=== PATIENT | male | born 1950 | race Caucasian/White ===

== ENCOUNTER → 2021-03-15 12:49 | Outpatient (CLI) | payer MEDICARE, SELFPAY ==
--- NOTE | 2021-03-15 12:56 | DI.MRI.S_ITS ---
PROCEDURE: MR LUMBAR SPINE WO CON INDICATIONS: Radiculopathy, lumbar region TECHNIQUE: Noncontrast sagittal T1 spin echo and T2 fast echo, sagittal STIR, axial T1 and T2 fast spin echo through the lumbar spine. In cases with scoliosis, additional coronal T2 fast spin echo may be performed. COMPARISON: None. FINDINGS: Image quality: Excellent. Alignment and Curvature: Straightening of the normal lordotic curvature. Trace retrolisthesis of L3 on L4 and L4 on L5. Bone Marrow: Multilevel degenerative endplate sclerosis and spurring. Diffuse facet arthropathy. No evidence of acute fracture. T2 hyperintense focus measuring 1.5 cm involving the L5 vertebral body without definite T1 hyperintense appearance. This finding technically indeterminate. Spinal Cord: Conus medullaris terminates at the L1 level. Visualized cord demonstrates normal signal and size. Paraspinous Soft Tissues: T2 hyperintense left renal presumed cysts although technically nonspecific. T12-L1: Normal appearance. L1-L2: Posterior annular fissure. Severe canal narrowing. Near complete effacement of both lateral recesses with bilaterally symmetric appearance. Severe left foraminal stenosis with borderline nerve root compression. Mild right foraminal stenosis L2-L3: Severe canal stenosis. Near complete effacement of both lateral recesses with bilaterally symmetric appearance. Severe left foraminal stenosis, with borderline nerve root compression. No right foraminal narrowing. L3-L4: Severe canal narrowing. Partial effacement of both lateral recesses with bilaterally symmetric appearance. Moderate left foraminal narrowing with questionable nerve root compression. No right foraminal stenosis. L4-L5: [id number] canal narrowing. Near complete effacement of both lateral recesses with bilaterally symmetric appearance. Moderate right and mild left foraminal stenosis. L5-S1: Mild canal narrowing. Partial effacement of both lateral recesses with bilaterally symmetric appearance. Mild right foraminal narrowing. Moderate left foraminal stenosis IMPRESSION: Focal lesion within the L5 vertebral body measuring 1.5 cm. Indeterminate signal characteristics as above. This could represent metastatic disease versus atypical hemangioma. Further evaluation could be performed with contrast enhanced MRI, and or bone scan. Diffuse spondylosis with severe canal stenosis at L2-L3, L3-L4. Numerous bilateral foraminal stenoses as outlined by spinal level above. Dictated by: Jacob Barrientos M.D. on 03/15/2021 at 14:44 Approved by: Jacob Barrientos M.D. on 03/15/2021 at 14:53
== END ==
PROVIDERS: PCP Family Medicine; Referring Provider Family Medicine; Visit Provider Family Medicine
DX: M47.26 Other spondylosis with radiculopathy, lumbar region (principal); M48.061 Spinal stenosis, lumbar region without neurogenic claudication; M48.07 Spinal stenosis, lumbosacral region; M89.9 Disorder of bone, unspecified
CPT/HCPCS: 72148

== ENCOUNTER → 2021-04-05 13:53 | Outpatient (CLI) | payer MEDICARE, SELFPAY ==
--- NOTE | 2021-04-05 | DI.MRI.S_ITS ---
PROCEDURE: MR LUMBAR SPINE W CON INDICATIONS: abnormal mri of lumbar spine TECHNIQUE: After the administration of contrast, sagittal and axial T1 spin echo with fat saturation through the lumbar spine. COMPARISON: [facility], MR, MR LUMBAR SPINE WO CON, 03/15/2021, 13:11. FINDINGS: Image quality: Excellent. The previously described low T1 signal intensity focus within the T1 vertebral body demonstrates ill-defined peripheral enhancement as well as hypointense internal fat saturated T1 signal intensity, consistent with an atypical hemangioma. IMPRESSION: Findings suggestive of an atypical hemangioma at L5. Follow-up lumbar spine MRI with and without intravenous contrast in 3 months is recommended to exclude less likely, more aggressive etiologies. Dictated by: Bharti Ortiz M.D. on 04/05/2021 at 15:42 Approved by: Bharti Ortiz M.D. on 04/05/2021 at 15:45
== END ==
PROVIDERS: PCP Family Medicine; Referring Provider Family Medicine; Visit Provider Family Medicine
DX: M54.16 Radiculopathy, lumbar region (principal); M89.8X8 Other specified disorders of bone, other site
CPT/HCPCS: 72149; A9579

== ENCOUNTER → 2025-02-02 12:36 | Outpatient (CLI) | payer MEDICARE, OTHER, SELFPAY ==
--- NOTE | 2025-02-02 13:03 | EKG_ITS ---
[address] [address] [address] [address] Test Date: 2025-02-02 Pat Name: Edgar Beckman Department: [facility] Room: Gender: Male Enrichment Assistant: RUPINDER : 1950 Requested By: Order Number: [id number] Reading MD: Panchito Whitfield Measurements Intervals [place] Rate: 52 P: 63 AL: 176 QRS: 48 QRSD: 110 T: 35 QT: 424 QTc: 394 Interpretive Statements Sinus bradycardia Electronically Signed On 02-08-2025 20:07:51 PDT by Panchito Whitfield
[2025-02-02 13:18] LABS: Appearance Urine UA CLEAR; Bilirubin Urine UA NEGATIVE (NEGATIVE); Color Urine UA YELLOW; Glucose Urine UA NEGATIVE (Negative); Ketones Urine UA NEGATIVE (NEGATIVE); Leukocyte Esterase Urine UA NEGATIVE (NEGATIVE); Nitrite Urine UA NEGATIVE (Negative); Occult Blood Urine UA NEGATIVE (Negative); Protein Urine UA NEGATIVE (Negative); Specific Gravity Urine UA 1.015 (1.000-1.035); Urobilinogen Urine UA 0.2 E.U./dL (0.2)
[2025-02-02 13:23] LABS: Bacteria Urine None Seen; Culture Indicated Urine Cult Not Indicated; RBC Urine None Seen (0-5/HPF); Squamous Epithelial Cell Urine None Seen (0-5/HPF); Urine Volume 10mL (spun); WBC Urine None Seen (0-5/HPF)
[2025-02-02 13:35] LABS: Add Manual Diff / Slide Review NO; Basophils Absolute Auto 100 /uL (0-100); Basophils Percent Auto 0.9 % (0-2); Eosinophils Absolute Auto 300 /uL (0-450); Eosinophils Percent Auto 4.6 % (2-4); Hematocrit 41.3 % (41-53); Hemoglobin 13.9 g/dL (13.5-17.5); Lymphocytes Absolute Auto 1400 /uL (1100-4500); Lymphocytes Percent Auto 20.3 % (25-40); Mean Corpuscular HGB Conc 33.7 % (30-36); Mean Corpuscular Hemoglobin 30.1 PG (26-34); Mean Corpuscular Volume 89.3 fL (80-100); Monocytes Absolute Auto 500 /uL (0-900); Monocytes Percent Auto 8.1 % (3-14); Neutrophils Absolute Auto 4500 /uL (1500-7000); Neutrophils Percent Auto 66.1 % (50-75); Platelet Count 333 X10^3/uL (150-400); Red Blood Cell Count 4.62 X10^6/uL (4.5-5.9); Red Cell Distribution Width 13.5 % (11.6-14.8); White Blood Cell Count 6.7 X10^3/uL (4.5-11.0)
[2025-02-02 13:43] LABS: Hemoglobin A1C% w Est Avg Glu 5.6 % (4.0-6.0)
[2025-02-02 13:49] LABS: BUN Creatinine Ratio 21.1 (6-22); Blood Urea Nitrogen 20 mg/dL (9-20); Calcium 9.8 mg/dL (8.4-10.2); Carbon Dioxide 29 mmol/L (22-32); Chloride 102 mmol/L (98-107); Estimated Glomerular Filt Rate > 60 mL/min (>60); Glucose 91 mg/dL (80-110); HEMOLYSIS < 15 (0-50); Potassium 4.6 mmol/L (3.4-5.1); Sodium 139 mmol/L (137-145)
== END ==
PROVIDERS: PCP Family Medicine; Referring Provider Orthopaedic Surgery; Visit Provider Orthopaedic Surgery
DX: Z01.818 Encounter for other preprocedural examination (principal); R73.9 Hyperglycemia, unspecified; Z01.812 Encounter for preprocedural laboratory examination; N39.0 Urinary tract infection, site not specified
CPT/HCPCS: 36415; 80048; 81001; 83036; 85025; 93005

== ENCOUNTER 2025-03-22 08:42 | Day surgery (SDC) | payer MEDICARE, OTHER, SELFPAY ==
[2025-03-15 09:45] VITALS: BMI 28.8
[2025-03-22] VITALS (12 sets, daily range): BP systolic 105–138; BP diastolic 39–63; PULSE 53–69; RESP 11–18; TEMP 36.3–37.2; O2SAT 92–98; BMI 28.8
--- NOTE | 2025-03-22 | DI.RAD.S_ITS ---
PROCEDURE: XR HIP W PEL IF DONE RT 4V INDICATIONS: intra op anterior rt hip TECHNIQUE: AP pelvis and lateral view of the hip acquired. COMPARISON: None. FINDINGS: Four limited fluoroscopic spot images are submitted. Expected postoperative changes status post right total hip arthroplasty without gross radiographic evidence of periprosthetic fracture or high attenuation surgical instrument or foreign body. IMPRESSION: Expected post-operative appearance of a right hip arthroplasty. Dictated by: Meliton Ashraf M.D. on 03/22/2025 at 21:53 Approved by: Meliton Ashraf M.D. on 03/22/2025 at 21:54
--- NOTE | 2025-03-22 06:00 | DI.RAD.S_ITS ---
PROCEDURE: XR HIP W PEL IF DONE RT 2V INDICATIONS: BRY TECHNIQUE: AP pelvis and lateral view of the hip acquired. COMPARISON: [facility], [facility]EL, ORTHO-XR HIP W PEL RT 4V, 03/22/2025, 12:41. FINDINGS: Bones: Patient is status post right hip arthroplasty, with hardware components in expected positions. The hip joint appears congruent. The visualized bony structures appear intact. Soft tissues: Overlying postoperative changes are noted. No suspicious soft tissue densities. IMPRESSION: Expected post-operative appearance of a hip arthroplasty. Dictated by: Selwyn Muller M.D. on 03/23/2025 at 15:21 Approved by: Selwyn Muller M.D. on 03/23/2025 at 15:23
[2025-03-22] MEDS: VANCOMYCIN 1,000 MG in SODIUM CHLORIDE 0.9% 250 ML 250 MG IV (09:34)
[2025-03-22] MEDS: LACTATED RINGERS 1,000 ML 42 ML IV (09:34)
[2025-03-22] MEDS: ACETAMINOPHEN 325 MG TABLET 975 MG PO (09:39)
[2025-03-22] MEDS: CELECOXIB 200 MG CAPSULE PO (09:39)
--- NOTE | 2025-03-22 10:14 | PM.PREOP ---
Pre-operative Note Interval Note History & Physical reviewed/Exam performed by Physician: Yes Changes to H&P: No
--- NOTE | 2025-03-22 10:15 | PM.OP.1 ---
Operative Date/Time/Diagnoses Date of procedure: 03/22/25 Time of procedure: 11:10 Pre-op diagnosis: right hip OA Post-op diagnosis: same Procedure & Clinicians Procedure: Right total hip arthroplasty anterior approach Same procedure as scheduled: Yes Indications: The patient has had progressively worsening right hip pain with radiographic changes consistent with arthritis. Non-operative management has failed and the patient has requested total hip replacement. The risks, benefits and alternatives to surgery were discussed with the patient prior to proceeding. Risks discussed included, but were not limited to, failure to relieve pain, leg length discrepancy, dislocation, stiffness, infection, nerve damage, deep venous thrombosis, pulmonary embolism, stroke, coma, heart attack, permanent paralysis and , as well as the potential need for eventual revision of the prosthetic. Surgeon: Lisbeth Hebert Building Maintenance Custodian: Abelino Lopez Anesthesia Type: Spinal Operative Notes Findings: Severe right hip OA, adequate stability Closure Type: primary Specimen(s): none sent Prosthetic devices, grafts, tissues, transplants, or devices: Hebert and nephew R3 58 mm, neutral poly liner,one 6.5 mm screw, polar stem lateralized size 3, 36 x -3 femoral head Estimated Blood Loss (mL): 250 Blood products transfused: none Procedure in detail: The patient was brought to the operating room. Patient was carefully positioned in the supine position. Time-out was performed and antibiotics were given. Anesthesia was induced. He was positioned in the on the table in order to allow hyperextension of the hip. The right lower extremity was prepped and draped in a standard sterile fashion. An anterior right hip incision was made 1 fingerbreadth lateral to the anterior superior iliac spine and extended distally towards the greater trochanter. Dissection was carried out through skin and subcutaneous tissues. Superficial hemostasis was achieved. The fascia over the tensor fascia catherine was defined and incised with a knife. Two Allis clamps were used to grasp the fascia. Tensor fascia catherine was retracted laterally. A gelpi retractor was placed. Dissection was carried out down along the neck. The circumflex vessels were carefully identified and cauterized with the Aqua Mantis. PA was used during the procedure was essential for intraoperative retraction and safe implantation of the components. There was good visualization of the femoral neck. A Cobra was placed superior to the neck and the gluteus fibers were carefully stripped from that superior aspect of the capsule. A 2nd retractor was placed along the inferior aspect of the neck. The rectus insertion along the capsule was partially released. A 3rd retractor that was then gently placed over the rim of the acetabulum under the rectus. Capsule was carefully incised and released from the intertrochanteric line circumferentially superior to the mid sagittal line and inferiorly to the mid sagittal line until the lesser trochanter was palpable. A tag stitch was placed both in the superior and inferior limb of the capsular insertion. Along the acetabulum capsule was also released up to the mid sagittal 12:00 position. A portion of the labrum was resected. A saw was used to perform an osteotomy at the level of the intertrochanteric line and the junction of the superior femoral neck leaving approximately 1 finger breath of residual inferior neck above the lesser trochanter. A 2nd cut was made along the femoral neck at the base of the head and a napkin ring of neck was removed. Corkscrew was placed in the femoral head and the head was removed without difficulty. Retractors were then repositioned around the acetabulum. Residual labrum was resected and additional osteophytes were removed. A reamer that was 4 mm below the templated size was placed by hand in the acetabulum and it was reamed to centralize the acetabulum. It was then reamed up to 2 under the templated size and fluoroscopy was brought in to confirm the position of the reaming and depth of reaming. I reamed 1 under the anticipated size. A trial cup was placed and noted that it was appropriately sized and fluoroscopy confirmed position and depth. The component was open and inserted without difficulty fluoroscopic imaging was used to confirm that the cup had been adequately seated and was well positioned. It was further stabilized with a single screw. Neutral poly liner was placed. The cup was tested and noted to be stable. Attention was then directed to the femur. The femur was gently hyperextended additional capsular release was performed as needed in order to allow adequate visualization of the proximal femur with elevation of the femur. Patient was placed in a hyperextended slightly adducted position with maximum external rotation. Box osteotome was used to check for any residual neck as well as sclerotic bone along the trochanter. [place] pepper was placed in the femur. Additional broaching was performed. Canal finder was used to determine the alignment of the canal and position. Size 1 broach was placed. The canal was then appropriately broached up to the templated size as long as there was adequate stability of the broach and serial advancement of the broach without excessive impingement. Specific attention was directed at avoiding varus attempting to direct the distal aspect of the broach more anteriorly and avoiding excessive anteversion. Trial reduction showed acceptable range of motion, good stability, no posterior impingement, congregational of leg length and appropriate lateral shuck. I also hyperflexed the hip and checked that there was no impingement anteriorly and there was good stability with flexion, adduction and internal rotation. Marcaine and Exparel were injected. The stem was placed without difficulty. Repeat trial reduction and x-ray showed acceptable overall position, length, and no evidence of the femoral fracture. Final head was placed. Wound was meticulously irrigated with normal saline. The hip was reduced and additional Exparel and Marcaine were injected. The capsule was closed with interrupted nonabsorbable sutures. The fascia of the tensor was closed with interrupted and running Vicryl. No drain was placed. Any tensor fascia catherine muscle that appeared to be contused or injured which was a minimal amount was carefully resected. Capsule around the tensor was injected with Exparel and Marcaine. The skin was closed with barbed stitches for the subcutaneous tissue and skin. We also used surgical glue. The wound was dressed sterilely. Brief Betadine soak was also used and was meticulously irrigated with normal saline. Patient was transferred to recovery room in satisfactory condition. Complications: none Post-operative Condition: stable Disposition: Acute Care Plan for aftercare: The patient will be maintained on a standard total hip replacement protocol with weight bearing as tolerated and anterior hip precautions. The patient will receive Aspirin and sequential compression devices for DVT prophylaxis. The patient will be discharged home when safe for the home environment.
--- NOTE | 2025-03-22 11:15 | SUR.OPER ---
Supine on padded [place] table with bilateral legs secured in padded positioning boots and suspended in positioning spars, operative leg in traction per surgeon. Head on one pillow. Arm on non-operative side secured on padded armboard <90 degrees abduction. Arm on operative side padded and resting across chest then secured with tape over sheet. Padded perineal post in place per surgeon.
[2025-03-22] MEDS: CEFAZOLIN 2 GM/100 ML PREMIX 100 ML IV ×2 (11:35→20:14)
[2025-03-22] MEDS: TRANEXAMIC ACID 1,000 MG VIAL 1000 MG INJ ×2 (11:50→13:45)
[2025-03-22] MEDS: BUPIVACAINE 0.25% W/ EPI 30 ML VIAL 60 ML INJ (11:51)
[2025-03-22] MEDS: BUPIVACAINE LIPOSOME 266 MG/20 ML VIAL INJ (11:51)
[2025-03-22] MEDS: LACTATED RINGERS 1,000 ML 100 ML IV ×2 (15:18→20:21)
[2025-03-22] MEDS: ACETAMINOPHEN 325 MG TABLET 650 MG PO ×2 (16:08→20:12)
[2025-03-22] MEDS: polyethylene glycoL 3350 17 GM POWD.PACK PO (16:08)
[2025-03-22] MEDS: DOCUSATE 100 MG CAPSULE PO (20:12)
[2025-03-22] MEDS: IBUPROFEN 400 MG TABLET PO (20:13)
[2025-03-22] MEDS: ASPIRIN EC 81 MG TABLET PO (20:14)
[2025-03-22] MEDS: LATANOPROST 0.005% OPHTH 2.5 ML 1 DROPS EYE-BOTH (20:15)
[2025-03-23] MEDS: CEFAZOLIN 2 GM/100 ML PREMIX 100 ML IV (03:31)
[2025-03-23] MEDS: ACETAMINOPHEN 325 MG TABLET 650 MG PO ×2 (03:31→09:16)
[2025-03-23] MEDS: IBUPROFEN 400 MG TABLET PO ×2 (03:31→09:19)
[2025-03-23 05:09] LABS: Hematocrit 34.5 % (41-53); Hemoglobin 12.1 g/dL (13.5-17.5)
[2025-03-23] MEDS: LEVOTHYROXINE 125 MCG TABLET 250 MCG PO (06:14)
[2025-03-23 07:00] VITALS: BP 125/68; PULSE 68; RESP 18; TEMP 36.3; O2SAT 97
--- NOTE | 2025-03-23 07:36 | PM.DS.1 ---
History of Present Illness History of Present Illness Chief complaint: Right Total Hip Arthroplasty/Anterior Approach Discharge Providers Provider Discharge Date: 03/23/25 Consults: 03/22/25 06:00 Consult to Anesthesiology Routine Comment: Consulting Provider: Anesthesiologist Reason for consultation: Regional block for post operative pain control Has provider been notified: No 03/22/25 15:07 Consult to Discharge Planning Routine Comment: Consult to Occupational Therapy Evaluate & Treat Comment: Physician Instructions: Evaluate and treat Consult to Physical Therapy Evaluate & Treat Comment: Physician Instructions: post op BRY protocol Discharge provider: Lisbeth Hebert MD Summary Hospital Course Discharge Diagnosis: Right hip OA. Right total hip arthroplasty. Hospital Course: Patient was taken to the operating room and underwent a right total hip arthroplasty. He tolerated the procedure well. He was mobilized with physical therapy. He had adequate pain control. He did not have problems voiding. He was felt to be stable for discharge to home. Time Spent with Patient Time spent: Less than 30 minutes Exam Vital Signs (past 8 hours): Oxygen Delivery Method Room Air Oxygen Flow Rate 0 Narrative Exam Narrative: Alert he is oriented his fair mobility in the right hip dressing is dry his calf is soft distally he is neurologically intact distally. Objective Labs 03/23/25 04:20 Labs: Laboratory Results - last 24 hr 03/23/25 04:20 Hgb 12.1 L Hct 34.5 L PFSH Medical History (Updated 03/15/25 @ 10:12 by Glenis Stevens RN) Spinal stenosis Scoliosis Chronic low back pain Osteoarthritis Hypothyroid HLD (hyperlipidemia) HTN (hypertension) Glaucoma Surgical History (Updated 03/15/25 @ 10:13 by Glenis Stevens RN) Hx of colonoscopy Status post hernia repair Family History (Updated 02/06/17 @ 00:00 by Conversion Provider) Grandfather Heart disease Grandmother Diabetes mellitus Social History household members: spouse Smoking Status: Former smoker alcohol intake: current Discharge Assessment & Plan Assessment and Plan Assessment: Doing well postoperatively. Stable for discharge to home. Plan of Treatment: Keep previously scheduled follow up a 10-14 days postoperatively. Ambulate as tolerated. Fall precautions. Discharge Plan Discharge Plan Patient Disposition: Home Discharge orders & Medications Discharge Orders: Discharge (Order); Ordered 03/23/25 Ordered By: Lisbeth Hebert Prescriptions: New acetaminophen 325 mg Tablet 650 mg PO Q6H Qty: 90 0RF polyethylene glycol 3350 17 gram Powder In Packet 17 gm PO DAILY PRN (Reason: Constipation) Qty: 14 0RF aspirin 81 mg Tablet,Delayed Release (Dr/Ec) 81 mg PO BID Qty: 90 0RF ibuprofen 400 mg Tablet 400 mg PO Q4H PRN (Reason: Pain, Mild (1-3)) Qty: 90 0RF oxycodone 5 mg Tablet 5 mg PO Q3H PRN (Reason: Pain, Moderate (4-6)) Qty: 30 0RF ondansetron HCl (PF) 4 mg/2 mL Solution 4 mg IV Q4HR PRN (Reason: Nausea And Vomiting) Qty: 20 0RF Continued latanoprost 0.005 % Drops 1 drp EYE-BOTH BEDTIME atorvastatin 20 mg Tablet 20 mg PO DAILY fenofibrate micronized 67 mg Capsule 67 mg PO DAILY acetaminophen 500 mg Tablet 1,000 mg PO BID losartan-hydrochlorothiazide 50-12.5 mg Tablet 1 tab PO DAILY levothyroxine 200 mcg Capsule 250 mcg PO DAILY Patient Comments: Pt takes 200mcg with a 50mcg pill daily Diet/Activity/Treatments Diet: Diet as Tolerated Activity: Walk multiple times a day. Be careful to avoid falls. Cold/Heat Therapy: Use ice multiple times a day. Skin/Wound/Dressing Care Skin care: Okay to shower. Report to your healthcare provider any signs of infection, such as:: chills, fever, night sweats, increased pain, unusual drainage and unusual redness Dressing: Leave dressing on. Visit Report/Discharge Packet Instructions: DI for Hip Replacement, DI for Prescription Opioid Use Stand Alone Forms: Patient Portal/API, Surgery Discharge Discharge Data Attending Provider: Lisbeth Hebert
[2025-03-23] MEDS: DOCUSATE 100 MG CAPSULE PO (09:14)
[2025-03-23] MEDS: ASPIRIN EC 81 MG TABLET PO (09:14)
[2025-03-23] MEDS: FENOFIBRATE, MICRONIZED 67 MG CAPSULE PO (09:14)
[2025-03-23] MEDS: LOSARTAN 50 MG TABLET PO (09:14)
[2025-03-23] MEDS: hydroCHLOROthiazide 25 MG TABLET 12.5 MG PO (09:15)
--- NOTE | 2025-03-23 09:45 | PT.IIE ---
Current Diagnoses Unilateral primary osteoarthritis, right hip (03/22/25) Surgery Performed Operation Date: 03/22/25 10:45 Actual Procedures p Total Hip Arthroplasty/Anterior Approach(Right) - Lisbeth Hebert MD Surgical History (Last Updated 03/15/25 @ 10:13 by Glenis Stevens, RN) Hx of colonoscopy Status post hernia repair Medical History (Last Updated 03/15/25 @ 10:12 by Glenis Stevens, RN) Chronic low back pain Glaucoma HLD (hyperlipidemia) HTN (hypertension) Hypothyroid Osteoarthritis Scoliosis Spinal stenosis Physical Therapy Inpatient Evaluation/Re-Eval M1 PT/OT-IP Prior Functional Status Start: 03/23/25 14:10 Freq: NEEDED Status: Discharge Protocol: Document 03/23/25 09:45 AB (Rec: 03/23/25 14:23 AB [id number]) Medical Review Prior Functional Status Medical History Reviewed Yes Communication able to make needs known Mobility and Gait pt stated that he was independent with all mobilities and ambulation without AD Activities of Daily Living and IADL's Pt was IND for all ADLS without AD Social History Household Members spouse Living Arrangements House Number of Floors (Floors) One Floor Number of Stairs To Enter/Railing? no steps to enter Home Environment Standard Height Toilet,Walk in Shower Home Equipment Front Wheel Walker,Straight Cane,Raised Toilet Seat w/ Armrests,Shower Seat without Backrest,Hand Held Shower, Installment Dealer,Sock Aid,Grab Bars In Shower Employment Status Retired Additional Social History Comment Pt has a flat bed and lives on [address] with his who is able to assist. M2 PT-IP Current Condition Start: 03/23/25 14:10 Freq: NEEDED Status: Discharge Protocol: Document 03/23/25 09:45 AB (Rec: 03/23/25 14:23 AB [id number]) Physical Therapy Current Condition Current Condition Evaluation Date 03/23/25 Treatment Diagnosis s/p R BRY anterior; difficulty in walking Onset Date 03/22/25 M3 PT-IP Subjective Start: 03/23/25 14:10 Freq: NEEDED Status: Discharge Protocol: Document 03/23/25 09:45 AB (Rec: 03/23/25 14:23 AB [id number]) Subjective Physical Therapy Visit Type Type Initial Evaluation Visit Start Time 09:45 Visit Stop Time 10:30 Number of MACHINIST BRAKE Visits 0 Physical Therapy Visit Comments Patient Comments agreeable to do PT Therapy Pain Assessment Pain When Pain Assessed At Rest Pain Present Pain Present Pain Reported Location right hip Intensity 4 Scale Used Numeric (0 - 10) Pain Management Techniques Apply Cold,Distraction, Modification of Treatment,Re- positioning,Timing of Activity with Medications M4 PT-IP Mobility and Gait Start: 03/23/25 14:10 Freq: NEEDED Status: Discharge Protocol: Document 03/23/25 09:45 AB (Rec: 03/23/25 14:23 AB [id number]) PT-Bed Mobility Assessment Supine to Sit Supine to Sit Standby Assistance PT-Transfer Assessment Sit to and From Stand Sit to and from Stand Contact Guard Assistance,1 Person Assistance,2 Person Assistance Equipment Transfer Assistive Device Gait Belt,Front Wheeled Walker Orthotic/Prosthetic Devices or Brace: No Transfers Transfer Destination Chair Transfer Technique ambulated Transfer Ability Level of Assist Contact Guard Assistance,Use of Upper Extremities Comments Mobility Comments pt in bed and spouse in room. pt agreed to do PT. obtained PLOF and home set up. BP: 115/50. educated on hip precautions. post-op folder provided and reviewed contents . pt completed supine to sit SBA. able to sit on EOB SBA. BP: 118/37. slight dizziness. informed nursing staff. Re- checked: 123/60. sit to stand from EOB CGA and ambulated to the chair using FWW CGA. BP rechecked: 129/55. caregiver training conducted. educated spouse on how to use safety belt and how to assist pt. spouse was able to put safety belt on pt. assisted pt with sit to stand and ambulation in room using FWW ~ 30 ft CGA. pt sat back on chair. positioned pt on the chair. call light and table placed within reach. pt and spouse without further concerns. Gait Assessment Gait Gait Assistance Required: Contact Guard Assist Distance (Feet) 30 Able to Maintain Weight Bearing Status Yes During Gait Assistive Devices Assistive Device Gait Belt,Front Wheeled Walker Orthotic/Prosthetic Devices or Brace: No Gait Deviations General Gait Pattern Antalgic,Decreased Stride Length,Decreased Feet Clearance Factors Limiting Gait Function Factors Limiting Gait Function Decreased Activity Tolerance, Decreased Strength,Limited Range of Motion,Pain,Poor Balance,Poor Safety Awareness PT-Balance Assessment Sitting Balance and Reactions Static Sitting Balance Ability Normal Dynamic Sitting Balance Ability Good Standing Balance and Reactions Static Standing Balance Ability Good Dynamic Standing Balance Ability Fair Device Used FWW M5 PT-IP Objective Assessments Start: 03/23/25 14:10 Freq: NEEDED Status: Discharge Protocol: Document 03/23/25 09:45 AB (Rec: 03/23/25 14:23 AB [id number]) Orientation Orientation/Cognition Level of Alertness Alert Orientation Name,Place,Situation Language Function Ability No Deficits Noted Safety Awareness Understands Safety Issues Memory Description No Deficits Noted Gross Range of Motion Lower Extremity ROM Assessment Within Functional Limits Strength Lower Extremity Strength Assessment Right Impaired Hip 3-/5 Knee 4-/5 Coordination Assessment Gross Coordination Gross Coordination WNL Sensation Assessment Sensation Gross Sensation WNL Muscle Tone Muscle Tone WNL Yes M6 PT-IP Treatment Start: 03/23/25 14:10 Freq: NEEDED Status: Discharge Protocol: Document 03/23/25 09:45 AB (Rec: 03/23/25 14:23 AB [id number]) Physical Therapy Treatment Education Education Provided Precautions,Weight Bearing Status,Post-Op Packet,Safety M7 PT-IP Assessment and Plan Start: 03/23/25 14:10 Freq: NEEDED Status: Discharge Protocol: Document 03/23/25 09:45 AB (Rec: 03/23/25 14:23 AB [id number]) PT Summary Assessment and Plan Potential Rehabilitation Potential Fair Status of Condition at Evaluation Stable Summary Impairments Pain,ROM,Strength,Balance, Coordination,Sensation,Tone, Cognition,Bed Mobility, Transfers,Gait,Activity Tolerance Assessment Summary pt is a 74 y/o M s/p R BRY anterior approach POD 1. pt has R anterior hip precautions and is WBAT. pt requiring CGA for transfers and ambulation using FWW. caregiver training conducted and spouse was able to assist pt safely. pt plans to go home and has outpt PT set up. Goals Transfer Goal Independent,Front Wheeled Walker Gait Goal Independent,Front Wheel Walker Gait Distance 300 Days to Meet Goals 5 Frequency of Treatment Frequency Of Treatment Twice a Day Treatment Plan Physical Therapy Treatment Plan Bed Mobility Training,Transfer Training,Gait Training, Therapeutic Exercise,Balance Retraining,Post Op Education, Discharge Planning,Hot or Cold Pack,Neuromuscular Re-ed, Coordination Retraining,Manual Therapy Precautions Anterior Hip Precautions No Hip Extension,No Hip External Rotation Weight Bearing Status Weight Bearing Status Weight Bear as Tolerated Allowed Weight Bearing Amount (enter % RLE WBAT or #) (%) Recommendations To Nursing Amount of Assist Needed 1 Person Assist Discharge Recommendations PT Discharge Recommendations Home with Assistance, Outpatient PT Transportation Needs at Discharge Private Vehicle - PT assist 1
--- NOTE | 2025-03-23 11:12 | OT.IP.EVAL ---
Current Diagnoses Unilateral primary osteoarthritis, right hip (03/22/25) Surgery Performed Operation Date: 03/22/25 10:45 Actual Procedures p Total Hip Arthroplasty/Anterior Approach(Right) - Lisbeth Hebert MD Past Medical History (Last Updated 03/15/25 @ 10:12 by Glenis Stevens, RN) Chronic low back pain Glaucoma HLD (hyperlipidemia) HTN (hypertension) Hypothyroid Osteoarthritis Scoliosis Spinal stenosis Surgical History (Last Updated 03/15/25 @ 10:13 by Glenis Stevens RN) Hx of colonoscopy Status post hernia repair Occupational Therapy Inpatient Evaluation/Re-Eval M1 PT/OT-IP Prior Functional Status Start: 03/23/25 12:47 Freq: NEEDED Status: Active Protocol: Document 03/23/25 12:48 CGR (Rec: 03/23/25 13:05 CGR Desktop) Medical Review Prior Functional Status Medical History Reviewed Yes Communication Pt is an effective verbal communicator. Mobility and Gait Pt was IND without AD at baseline Activities of Daily Living and IADL's Pt was IND for all ADLS without AD Social History Household Members spouse Living Arrangements House Number of Floors (Floors) One Floor Number of Stairs To Enter/Railing? no steps to enter Home Environment Standard Height Toilet,Walk in Shower Home Equipment Front Wheel Walker,Straight Cane,Raised Toilet Seat w/ Armrests,Shower Seat without Backrest,Hand Held Shower, Aeronautical Engineering Technologist,Sock Aid,Grab Bars In Shower Employment Status Retired Additional Social History Comment Pt has a flat bed and lives on [address] with his who is able to assist. M2 OT-IP Current Condition Start: 03/23/25 12:47 Freq: Status: Active Protocol: Document 03/23/25 12:48 CGR (Rec: 03/23/25 13:05 CGR Desktop) Occupational Therapy Current Condition Current Condition Evaluation Date 03/23/25 Treatment Diagnosis R BRY anterior Diagnosis Onset Date 03/22/25 Post Operative Precautions Anterior Hip Precautions No Hip Extension,No Hip External Rotation Weight Bearing Status Weight Bearing Status Weight Bear as Tolerated M3 OT- IP Subjective and Pain Start: 03/23/25 12:47 Freq: Status: Active Protocol: Document 03/23/25 12:48 CGR (Rec: 03/23/25 13:05 CGR Desktop) OT- Subjective Occupational Therapy Visit Type Type Initial Evaluation Visit Start Time 10:31 Visit Stop Time 11:12 Notes Pt's is present throughout session taking notes. OT Pain Assessment Pain When Pain Assessed At Rest Pain Present Pain Present Pain Reported Location right hip Intensity 4 Scale Used Numeric (0 - 10) Management Techniques Modification of Treatment,Re- positioning M4 OT- IP ADL's Start: 03/23/25 12:47 Freq: Status: Active Protocol: Document 03/23/25 12:48 CGR (Rec: 03/23/25 13:05 CGR Desktop) OT [id number] Comments OT Self-Feeding Comments not meal time OT ADL-Grooming General Evaluation Grooming Ability Independent Comments OT Grooming Comments standing at sink for washing hands OT ADL-Oral Care General Eval Oral Care Ability Independent Areas of Assistance Brushing Teeth Comments Oral Care Comments standing at sink OT ADL-Dressing Comments OT Dressing Comments Pt was educated on use of Aeronautical Engineering Technologist and sock aid but declined to practice. Pt states that he uses a sock aid regularly. OT ADL-Toileting General Evaluation Toileting Ability Independent Comments OT Toileting Comments educated on use of walker to stand for toileting and also performed sitting on toilet. OT ADL-Bathing Comments OT Bathing Comments not performed M5 OT- IP IADL's Start: 03/23/25 12:47 Freq: Status: Active Protocol: Document 03/23/25 12:48 CGR (Rec: 03/23/25 13:05 CGR Desktop) OT-Instrumental Activities of Daily Living Deficits IADL Deficits Identified No Deficits Home Safety Awareness Awareness of Need for Assistance at Home Good Awareness Ability to Problem Solve Emergency Able to Problem Solve Situations Medication Management Medication Management No Deficits Identified Money Management Money Management No Deficits Identified Meal Preparation Meal Preparation No Deficits Identified Core Checker Core Checker No Deficits Identified Driving Driving Comments Pt states understanding that he needs clearance from MD before driving. M6 OT- IP Functional Cognition Start: 03/23/25 12:47 Freq: Status: Active Protocol: Document 03/23/25 12:48 CGR (Rec: 03/23/25 13:05 CGR Desktop) Cognitive Factors Limiting Selfcare Function Cognitive Ability Level of Alertness Alert Patient Orientation Name,Age,Birthday,Month,Date, Year,Day of Week,Place, Situation Attention Span Ability Capable of Focused Attention, Capable of Sustained Attention Ability to Follow Commands Able to Follow Multi-Step Commands OT- Vision and Hearing OT- Hearing Assessment OT- Hearing Assessment WFL OT- Vision Assessment Visual Acuity WFL Visual Attentiveness WFL Occular Pursuits WFL Visual Convergence WFL Vision Assessment Comments Pt states he wears glasses for driving only. M7 OT- IP Mobility and Balance Start: 03/23/25 12:47 Freq: Status: Active Protocol: Document 03/23/25 12:48 CGR (Rec: 03/23/25 13:05 CGR Desktop) OT-Transfer Assessment Sit to and From Stand Sit to and from Stand Standby Assistance Transfers Transfer Ability Standby Assistance Technique Transfer Destination Chair Transfer Technique Stand Step Pivot Devices Transfer Assistive Devices Gait Belt,Front Wheeled Walker Comments Mobility Comments mobility around the room and bathroom OT- Balance Assessment Sitting Balance and Reactions Static Sitting Balance Ability Normal Dynamic Sitting Balance Ability Normal M8 OT- IP Objective Assessments Start: 03/23/25 12:47 Freq: Status: Active Protocol: Document 03/23/25 12:48 CGR (Rec: 03/23/25 13:05 CGR Desktop) OT Gross Range of Motion Upper Extremity Range of Motion Assessment Within Functional Limits OT Strength Upper Extremity Strength Assessment Within Functional Limits Comments Strength Comments 5+/5 OT- Coordination Assessment Upper Extremity Finger to Nose Test Within Functional Limits Finger Tapping Test Within Functional Limits OT-Muscle Tone Assessment Muscle Tone WNL Yes OT Sensation Assessment Edema Edema Absent M9 OT- IP Assessment and Plan Start: 03/23/25 12:47 Freq: Status: Active Protocol: Document 03/23/25 12:48 CGR (Rec: 03/23/25 13:05 CGR Desktop) OT Summary Assessment and Plan Potential Rehabilitation Potential Excellent Analytic Complexity at Evaluation Low Summary OT Impairments Pain,Balance,Functional Mobility,Grooming,Dressing, Toileting,Bathing,Toilet Transfers,Shower Transfers, Activity Tolerance Progress Towards Goals Progressing Toward Goals Assessment Summary Pt presents as a low complexity evaluation s/p admit for elective R BRY anterior approach. He is progressing well in todays session and will likely do well at home with his . If pt is here tomorrow, pt would benefit from shower training for home safety. Goals Grooming Goal Independent Dressing Goal Independent,Aeronautical Engineering Technologist,Sock Aid Toileting Goal Independent Bathing Goal Independent Toilet Transfer Goal Independent Shower Transfer Goal Independent Days to Meet Goals 2 Frequency of Treatment Other frequency 5x per week Treatment Plan OT Treatment Plan ADL Training,Functional Mobility,Patient/Family Education,Discharge Planning Other Treatment Recommendations and Next shower Treatment Focus Discharge Recommendations OT Discharge Recommendations Home with Assistance Transportation Needs at Discharge Private Vehicle
--- NOTE | 2025-03-23 12:34 | PC.NURSE ---
d/c teaching done at bedside with patient and . Patient states understanding of instructions, meds, and to sched. f/u appt. with surg. Patient reports PT is already set up. Pt's states she will help dress pt. Pt is A&Ox4, VSS. IV removed, pt enedelia. well.
== END 2025-03-23 13:28 | disposition home or self-care (01) ==
LOC: OR 08:44 → AC 08:48
PROVIDERS: Referring Provider Orthopaedic Surgery; Visit Provider Orthopaedic Surgery
PROC: (CPT 27130; principal; 2025-03-22 10:45)
DX: M16.11 Unilateral primary osteoarthritis, right hip (principal); Z87.891 Personal history of nicotine dependence; M25.751 Osteophyte, right hip
CPT/HCPCS: 27130; 36415; 73502; 73503; 76000; 82962; 85014; 85018; 97161; 97165; 97530; 97535; C1776; C1713; J0666; J0690; J1100; J1885; J2405; J2704; J3010